=== PATIENT | female | born 1980 | race Caucasian/White ===

== ENCOUNTER 2017-04-05 00:45 | Emergency (ER) | payer OTHER ==
[2017-04-05 01:10] VITALS: BP 129/77; PULSE 104; RESP 16; TEMP 98.7; O2SAT 98
--- NOTE | 2017-04-05 01:23 | ED PDOC ---
Lower Extremity Pain/Injury Time Seen by Provider: 04/05/17 00:55 Chief Complaint (Nursing): Lower Extremity Problem/Injury Chief Complaint (Provider): Knee pain, right History Per: Patient History/Exam Limitations: no limitations Onset/Duration Of Symptoms: Hrs Current Symptoms Are (Timing): Still Present Additional Complaint(s): Pt states she tripped on a rug at work at 8pm (approx 5 hours ago). Pt states she landed on both her knees. Pt states only the right one is hurting now. Pt states she continued to work her shift. Pain is not radiating. No numbness/ tingling. 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 Past Medical History Reviewed: Historical Data, Nursing Documentation, Vital Signs Vital Signs: Last Vital Signs Temp 98.7 F 04/05/17 01:08 Pulse 104 H 04/05/17 01:08 Resp 16 04/05/17 01:08 BP 129/77 04/05/17 01:08 Pulse Ox 98 04/05/17 01:08 - Medical History PMH: Hypothyroidism - Surgical History Surgical History: No Surg Hx - Family History Family History: States: No Known Family Hx - Living Arrangements Living Arrangements: With Family - Social History Current smoker - smoking cessation education provided: Yes Alcohol: None Drugs: Denies - Home Medications Home Medications: Ambulatory Orders Medication Instructions Recorded oxyCODONE/Acetaminophen [Percocet 1 - 2 tab PO Q6 PRN #14 tab 05/26/15 5/325 mg Tab] Ibuprofen [Motrin Tab] 800 mg PO Q6H PRN #20 tab 04/05/17 - Allergies Allergies/Adverse Reactions: Allergies Allergy/AdvReac Type Severity Reaction Status Date / Time No Known Allergies Allergy Verified 05/26/15 07:30 Review of Systems ROS Statement: Except As Marked, All Systems Reviewed And Found Negative Musculoskeletal: Positive for: Leg Pain (Right knee ) Skin: Negative for: Bruising Physical Exam - Reviewed Nursing Documentation Reviewed: Yes Vital Signs Reviewed: Yes - Physical Exam Appears: Positive for: Well, Non-toxic, No Acute Distress Head Exam: Positive for: ATRAUMATIC, NORMAL INSPECTION, NORMOCEPHALIC Skin: Positive for: Normal Color (No ecchymosis ), Warm Eye Exam: Positive for: Normal appearance ENT: Positive for: Normal ENT Inspection Neck: Positive for: Normal, Painless ROM Respiratory: Negative for: Accessory Muscle Use, Respiratory Distress Back: Positive for: Normal Inspection Extremity: Positive for: Tenderness (Right patella ), Swelling (Mild ). Negative for: Normal ROM (Decreased right flexion due to pain ), Deformity Neurologic/Psych: Positive for: Alert, Oriented - ECG O2 Sat by Pulse Oximetry: 98 Medical Decision Making Medical Decision Making: x-ray normal Crutches. Disposition - Clinical Impression Clinical Impression: Knee pain - Patient ED Disposition Is Patient to be Admitted: No Counseled Patient/Family Regarding: Diagnosis, Need For Followup - Disposition Disposition: Routine/Home Disposition Time: 02:40 Condition: GOOD Prescriptions: Ibuprofen [Motrin Tab] 800 mg PO Q6H PRN #20 tab PRN Reason: Pain Instructions: Knee Pain (ED) Forms: [facility] ED School/Work Excuse
--- NOTE | 2017-04-05 09:05 | RAD ---
PROCEDURE: Right Knee Radiographs. HISTORY: pain, fall COMPARISON: None. FINDINGS: BONES: Normal. No fracture. JOINTS: Normal. No osteoarthritis. JOINT EFFUSION: None. OTHER FINDINGS: None. IMPRESSION: Normal radiographs of the right knee.
== END 2017-04-05 03:14 | disposition home or self-care (01) ==
LOC: H.ER 00:45
DX: M25.561 Pain in right knee (principal); W19.XXXA Unspecified fall, initial encounter; Y99.0 Civilian activity done for income or pay; E03.9 Hypothyroidism, unspecified